=== PATIENT | female | born 1985 | race Asian ===

== ENCOUNTER 2016-09-28 20:11 | Emergency (ER) | payer OTHER ==
[2016-09-28 20:25] VITALS: BP 113/67; PULSE 107; RESP 16; TEMP 100.2; O2SAT 99
[2016-09-28 20:35] LABS: COLOR YELLOW; LEUKOCYTE ESTERASE,URINE 1+ (NEGATIVE); NITRITE,URINE NEGATIVE (NEGATIVE)
[2016-09-28 20:48] LABS: BACTERIA 3+ /hpf (NONE SEEN); RBC,URINE NONE SEEN /hpf (0-3); WBC,URINE 25-50 /hpf (0-3)
[2016-09-28] MEDS ORDERED: NS 1,000 ML IV ONE (21:05)
[2016-09-28] MEDS ORDERED: ONDANSETRON 4 MG/2 ML VIAL IVP ONE (21:06)
[2016-09-28] MEDS ORDERED: KETOROLAC 30 MG/1 ML SDV IVP ONE (21:06)
[2016-09-28 21:21] LABS: % IMMATURE GRANULYOCYTES 0.4 % (0.0-1.1); ABSOLUTE IMMATURE GRANULOCYTES 0.04 10^3/uL (0.00-0.10); ADD DIFF? NO; ADD MORPH? NO; ADD SCAN? NO; ATYPICAL LYMPHOCYTE FLAG 10 (0-99); FRAGMENT RBC FLAG 0 (0-99); HEMATOCRIT 34.8 % (38.0-47.0); HEMOGLOBIN 11.5 g/dL (12.6-16.3); LEFT SHIFT FLG 0 (0-99); LIPEMIA HEMOLYSIS FLAG 80 (0-99); MEAN CELL HEMOGLOBIN 26.3 pg (27.9-34.1); MEAN CELL VOLUME 79.5 fL (81.5-99.8); MEAN PLATELET VOLUME 9.8 fL (8.7-11.7); PLATELET CLUMPS FLAG 0 (0-99); PLATELET COUNT 266 10^3/uL (150-400); RED BLOOD CELL COUNT 4.38 10^6/uL (4.18-5.33); RED CELL DISTRIBUTION WIDTH 13.7 % (11.5-15.2)
--- NOTE | 2016-09-28 21:22 | UCPHY ---
H & P Patient Type: Established Chief Complaint Nursing Narrative: pain in stomach/back/head x 4 days. fever today. IUD checked today with U/S everything was negative. Time Seen by Provider: 09/28/16 20:27 HPI/ROS: This patient complains of right flank pain more than left associated with suprapubic discomfort over the past 4 days gradually increasing in intensity. She also developed fevers today. She reports associated dysuria. She saw [facility] today who checked her IUD and is deemed to be in normal position. Otherwise this is our 1st evaluation by clinician for the symptoms. ROS: No chills. No other constitutional symptoms. HEENT: No complaints no nasal congestion. Pulmonary: No cough. She is currently breast-feeding cardiovascular: No lightheadedness GI: She has nausea with anorexia. She did need anything today but she tolerated fluids. Normal bowel movements. : Dysuria and frequency. No vaginal discharge. She does not have menstrual periods since having her IUD placed. Skin: No rash. 10 point ROS is otherwise negative. Source: Patient Exam Limitations: No limitations - Personal History LMP (Females 10-55): Over 28 Days Ago Current Tetanus Diphtheria and Acellular Pertussis (TDAP): Unsure - Medical/Surgical History PMH: Otherwise healthy No prior UTIs Hx Asthma: No Hx Chronic Respiratory Disease: No Hx Diabetes: No Hx Cardiac Disease: No Hx Renal Disease: No Hx Cirrhosis: No Hx Alcoholism: No Hx HIV/AIDS: No Hx Splenectomy or Spleen Trauma: No Other PMH: Tonsilectomy. Breast feeding- no menstrual cycle - Family History Significant Family History: No pertinent family hx - Social History Smoking Status: Never smoked Alcohol Use: None Drug Use: None - Physical Exam Exam: Vital signs notable for mild fever and pulse of 107. Vitals are otherwise normal. General Appearance: Alert, no distress. Eyes: Pupils equal and round no pallor or injection. ENT, Mouth: Mucous membranes moist. Respiratory: There are no retractions, lungs are clear to auscultation. Cardiovascular: Regular rate and rhythm. Gastrointestinal: Normoactive, soft, mild suprapubic tenderness. No guarding or rebound. Back: Right-sided CVA tenderness is present. Neurological: Alert with no focal deficits. Skin: Warm and dry, no rashes. Musculoskeletal: Neck is supple nontender. Extremities are symmetrical, full range of motion. Psychiatric: Mood and affect are normal DIFFERENTIAL DIAGNOSIS: After history and physical exam differential diagnosis was considered for pyelonephritis, cystitis with musculoskeletal back pain, viral illness, rule out Constitutional: Initial Vital Signs Temperature (C) 37.9 C 09/28/16 20:20 Heart Rate 107 H 09/28/16 20:20 Respiratory Rate 16 09/28/16 20:20 Blood Pressure 113/67 09/28/16 20:20 O2 Sat (%) 99 09/28/16 20:20 O2 Delivery Mode Room Air Allergies/Adverse Reactions: No Known Allergies Allergy (Verified 09/28/16 20:19) Home Medications: Medication Instructions Recorded Cefdinir [Omnicef (*)] 300 mg PO BID #14 cap 09/28/16 Ondansetron Odt [Zofran Odt] 4 - 8 mg PO Q4PRN PRN #4 tab 09/28/16 Medical Decision Making ED Course/Re-evaluation: Studies are notable for urinalysis consistent with UTI. Given her other symptoms findings most consistent with pyelonephritis. I counseled regarding this. IV Normal saline bolus Zofran for nausea Toradol Ceftriaxone IV Patient had relief of her pain and nausea with treatment. She tolerated p.o. intake prior to discharge. Her tachycardia resolved. Her vitals are normal at the time of discharge. She appears well without septic physiology - Data Points Laboratory Results: Laboratory Results 09/28/16 21:15 09/28/16 21:15 09/28/16 09/28/16 09/28/16 21:15 21:15 21:15 WBC 10.01 10^3/uL H 10^3/uL (3.80-9.50) RBC 4.38 10^6/uL 10^6/uL (4.18-5.33) Hgb 11.5 g/dL L g/dL (12.6-16.3) Hct 34.8 % L % (38.0-47.0) MCV 79.5 fL L fL (81.5-99.8) MCH 26.3 pg L pg (27.9-34.1) MCHC 33.0 g/dL g/dL (32.4-36.7) RDW 13.7 % % (11.5-15.2) Plt Count 266 10^3/uL 10^3/uL (150-400) MPV 9.8 fL fL (8.7-11.7) Neut % (Auto) 73.5 % % (39.3-74.2) Lymph % (Auto) 17.3 % % (15.0-45.0) [place] % (Auto) 8.0 % % (4.5-13.0) Eos % (Auto) 0.5 % L % (0.6-7.6) Baso % (Auto) 0.3 % % (0.3-1.7) Nucleat RBC Rel Count 0.0 % % (0.0-0.2) Absolute Neuts (auto) 7.36 10^3/uL H 10^3/uL (1.70-6.50) Absolute Lymphs (auto) 1.73 10^3/uL 10^3/uL (1.00-3.00) Absolute Monos (auto) 0.80 10^3/uL 10^3/uL (0.30-0.80) Absolute Eos (auto) 0.05 10^3/uL 10^3/uL (0.03-0.40) Absolute Basos (auto) 0.03 10^3/uL 10^3/uL (0.02-0.10) Absolute Nucleated RBC 0.00 10^3/uL 10^3/uL (0-0.01) Immature Gran % 0.4 % % (0.0-1.1) Immature Gran # 0.04 10^3/uL 10^3/uL (0.00-0.10) VBG Lactic Acid 0.7 mmol/L mmol/L (0.7-2.1) Sodium 137 mEq/L mEq/L (134-144) Potassium 3.6 mEq/L mEq/L (3.5-5.2) Chloride 99 mEq/L mEq/L (97-110) Carbon Dioxide 24 mEq/l mEq/l (22-31) Anion Gap 14 mEq/L mEq/L (8-16) BUN 8 mg/dL mg/dL (7-23) Creatinine 0.6 mg/dL mg/dL (0.6-1.0) Estimated GFR > 60 Glucose 103 mg/dL H mg/dL (70-100) Calcium 9.1 mg/dL mg/dL (8.5-10.4) Urine Color Urine Appearance Urine pH Ur Specific [place] Urine Protein Urine Ketones Urine Blood Urine Nitrate Urine Bilirubin Urine Urobilinogen Ur Leukocyte Esterase Urine RBC Urine WBC Ur Epithelial Cells Urine Bacteria Urine Glucose Urine Test 09/28/16 09/28/16 20:25 20:25 WBC RBC Hgb Hct MCV MCH MCHC RDW Plt Count MPV Neut % (Auto) Lymph % (Auto) [place] % (Auto) Eos % (Auto) Baso % (Auto) Nucleat RBC Rel Count Absolute Neuts (auto) Absolute Lymphs (auto) Absolute Monos (auto) Absolute Eos (auto) Absolute Basos (auto) Absolute Nucleated RBC Immature Gran % Immature Gran # VBG Lactic Acid Sodium Potassium Chloride Carbon Dioxide Anion Gap BUN Creatinine Estimated GFR Glucose Calcium Urine Color YELLOW Urine Appearance HAZY Urine pH 7.0 (5.0-7.5) Ur Specific [place] 1.010 (1.002-1.030) Urine Protein NEGATIVE (NEGATIVE) Urine Ketones NEGATIVE (NEGATIVE) Urine Blood NEGATIVE (NEGATIVE) Urine Nitrate NEGATIVE (NEGATIVE) Urine Bilirubin NEGATIVE (NEGATIVE) Urine Urobilinogen 0.2 EU EU (0.2-1.0) Ur Leukocyte Esterase 1+ H (NEGATIVE) Urine RBC NONE SEEN /hpf /hpf (0-3) Urine WBC 25-50 /hpf H /hpf (0-3) Ur Epithelial Cells 2+ /lpf H /lpf (NONE-1+) Urine Bacteria 3+ /hpf H /hpf (NONE SEEN) Urine Glucose NEGATIVE (NEGATIVE) Urine Test NEGATIVE Medications Given: Discontinued Medications Ceftriaxone Sodium 1 gm/ (Sodium Chloride) 100 mls @ 200 mls/hr IV EDNOW ONE PRN Reason: Protocol Stop: 09/28/16 21:35 Last Admin: 09/28/16 21:22 Dose: 100 mls Sodium Chloride (Ns) 1,000 mls @ 0 mls/hr IV ONCE ONE PRN Reason: Wide Open Stop: 09/28/16 21:06 Last Admin: 09/28/16 21:24 Dose: 1,000 mls Ketorolac Tromethamine (Toradol) 30 mg IVP EDNOW ONE Stop: 09/28/16 21:07 Last Admin: 09/28/16 21:23 Dose: 30 mg Ondansetron HCl (Zofran) 4 mg IVP EDNOW ONE Stop: 09/28/16 21:07 Last Admin: 09/28/16 21:24 Dose: 4 mg Departure - Departure Disposition: Home, Routine, Self-Care Clinical Impression: Pyelonephritis Condition: Good Instructions: Kidney Infection (ED) Additional Instructions: Diagnosis: Pyelonephritis (kidney infection) Plan: Drink plenty fluids Zofran for nausea vomiting if needed Ibuprofen for fevers and aches as [id number] mg per 6 hours Zofran if needed for nausea Start the Omnicef antibiotic tomorrow after breakfast Go to the emergency department for any significant worsening despite treatment plan Referrals: NONE *PRIMARY CARE P,. [Primary Care Provider] - As per Instructions Prescriptions: Cefdinir [Omnicef (*)] 300 mg PO BID #14 cap Ondansetron Odt [Zofran Odt] 4 - 8 mg PO Q4PRN PRN #4 tab PRN Reason: Vomiting - PQRS PQRS Measurement: NA
[2016-09-28 21:37] LABS: ANION GAP 14 mEq/L (8-16); CALCIUM 9.1 mg/dL (8.5-10.4); CARBON DIOXIDE 24 mEq/l (22-31); CHLORIDE 99 mEq/L (97-110); CREATININE 0.6 mg/dL (0.6-1.0); GLOMERULAR FILTRATION RATE > 60; GLUCOSE 103 mg/dL (70-100); POTASSIUM 3.6 mEq/L (3.5-5.2); SODIUM 137 mEq/L (134-144)
== END 2016-09-28 21:55 | disposition home or self-care (01) ==
LOC: CED 20:11
DX: N12 Tubulo-interstitial nephritis, not specified as acute or chronic (principal)
CPT/HCPCS: 80048-PO; 81003-PO; 81015-PO; 81025-PO; 83605-PO; 85025-PO; 96361-PO; 96365-PO; 96375-PO; 99215-PO; G0463-PO; J0696; J1885; J2405

== ENCOUNTER 2017-01-21 00:52 | Emergency (ER) | payer OTHER ==
[2017-01-21 01:08] VITALS: BP 111/69; PULSE 82; RESP 12; TEMP 97.9; O2SAT 97
[2017-01-21] MEDS ORDERED: IBUPROFEN 600 MG TAB PO ONE ×2 (01:21→01:22)
[2017-01-21] MEDS ORDERED: ERYTHROMYCIN 0.5% 1 GM OPHT.OINT ONE (01:21)
--- NOTE | 2017-01-21 01:27 | EDPHY ---
H & P HPI/ROS: This patient has a 1-year-old child and earlier today the child inadvertently poked this patient in the eye with her finger. Patient reports initially she had moderate pain is now severe. She has associated eye redness and blurring of her vision. The incident occurred few hours prior to arrival. She has not taken any medication for the injury. ROS: HEENT: No other injuries. No left eye symptoms. 5 point ROS is otherwise negative Past Medical/Surgical History: Otherwise healthy Smoking Status: Never smoked Physical Exam: Physical Exam Vital signs are normal. General: No acute distress HEENT: Atraumatic except for right eye redness. Periorbital injury Eyes: Pupils equal and react to light. Extraocular motions are intact. Right eye exam is notable for conjunctival injection-mild on slit-lamp exam patient has a corneal abrasion near the center of the cornea just inferior to the central visual axis. This is moderate in size. Appears to be some corneal edema associated with this. There is no hyphema. Lids and lashes are atraumatic and normal. Optic fundi exam is this limited due to eye movement but no abnormalities are noted. Left eye exam is normal. Visual acuity: 20/70 right eye, 20/20 OS and 20/20 both eyes Lungs: No respiratory distress. Cardiac: Brisk capillary refill is intact throughout. Skin: No rash or pallor. Neuro: Alert and oriented x3 with no sensorimotor deficits. Constitutional: Initial Vital Signs Temperature (C) 36.6 C 01/21/17 01:05 Heart Rate 82 01/21/17 01:05 Respiratory Rate 12 01/21/17 01:05 Blood Pressure 111/69 01/21/17 01:05 O2 Sat (%) 97 01/21/17 01:05 O2 Delivery Mode Room Air Allergies/Adverse Reactions: No Known Allergies Allergy (Verified 01/21/17 01:04) Home Medications: Medication Instructions Recorded Erythromycin 0.5% 1 jose RTEYE BID #5 g 01/21/17 Ibuprofen [Motrin (*)] 600 mg PO Q6 PRN #20 tab 01/21/17 traMADol [Ultram 50 mg (*)] 50 - 100 mg PO Q4 PRN #12 tab 01/21/17 MDM/Departure - MDM Medications Given: Erythromycin ointment applied to the eye and a patch is placed for comfort ED Course/Re-evaluation: Ibuprofen p.o.. Patient declined analgesics this time. Discussion: Patient with a corneal abrasion with some blurred vision and diminished vision in the affected eye attributable to her corneal edema. Since the injuries near the central visual axis will have her follow up with the on- call manager of network for recheck. I counseled her regarding the corneal injury in some detail. - Depart Disposition: Home, Routine, Self-Care Clinical Impression: Corneal abrasion Qualifiers: Encounter type: initial encounter Laterality: right Qualified Code(s): S05.01XA - Injury of conjunctiva and corneal abrasion without foreign body, right eye, initial encounter Condition: Good Instructions: Corneal Abrasion (ED) Additional Instructions: Diagnosis: Corneal abrasion-right eye Plan: Erythromycin eye ointment-apply 2 times a day for the next week Eye patch for comfort for the next 1-3 days Ibuprofen-600 mg per 6 hours as needed for pain Tylenol or tramadol in addition if needed. No driving, alcohol or work on tramadol. Call Dr. Almeida-manager of network arrange follow-up appointment for a recheck in 3 to 5 days Return here before then if you have any significant worsening despite the treatment plan Prescriptions: Erythromycin 0.5% 1 jose RTEYE BID #5 g Ibuprofen [Motrin (*)] 600 mg PO Q6 PRN #20 tab PRN Reason: Pain traMADol [Ultram 50 mg (*)] 50 - 100 mg PO Q4 PRN #12 tab PRN Reason: breakthrough pain Referrals: Patient,NotPresent [Primary Care Provider] - As per Instructions Brigitte Almeida MD [Non Staff Provider ()] - As per Instructions
[2017-01-21] MEDS ORDERED: HYDROCOD/APAP 5/325 PREPACK#6 BTL TAKEHOME ONE ×2 (01:38→01:40)
[2017-01-21] MEDS ORDERED: ERYTHROMYCIN 0.5% 1 GM OPHT.OINT EACHEYE ONE (01:44)
== END 2017-01-21 01:44 | disposition home or self-care (01) ==
LOC: CED 00:52
DX: S05.01XA Injury of conjunctiva and corneal abrasion without foreign body, right eye, initial encounter (principal); W22.8XXA Striking against or struck by other objects, initial encounter